=== PATIENT | female | born 1990 | race Caucasian/White ===

== ENCOUNTER 2018-05-20 11:00 | Outpatient (RCR) | payer OTHER, SELFPAY | END 2018-05-20 11:01 | disposition home or self-care (01) | LOC: PT 11:00 | PROVIDERS: Visit Provider Emergency Medicine | DX: M54.2 Cervicalgia (principal); M54.5 Low back pain | CPT/HCPCS: 97010; 97014; 97033; 97035; 97110; 97140; 97163; 97164; G0283 ==

== ENCOUNTER 2023-10-29 14:23 | Emergency (ER) | payer SELFPAY ==
[2023-10-29 14:34] VITALS: BP 134/82; PULSE 75; RESP 16; TEMP 36.8; O2SAT 97; BMI 25.8
--- NOTE | 2023-10-29 14:40 | ECG_ITS ---
APPROVED REPORT Exam: Resting ECG HR:75 bpm ECG Measurements Heart Rate 75 AXES MT 142 P 47 QRSd 98 QRS 62 QT 375 T -14 QTc 403 Conclusion SINUS RHYTHM NONSPECIFIC T-WAVE ABNORMALITY ABNORMAL ECG UNCONFIRMED REPORT Electronically signed by : Bolivar Mullins MD 10/30/2023 08:13:40
[2023-10-29] MEDS: LACTATED RINGERS 1000ML 1,000 ML 999 ML IV (14:56)
[2023-10-29 14:58] LABS: Basophils % 0.5 % (0.1-2.0); Eosinophils % 0.6 % (0.1-12.0); Hematocrit 44.8 % (37.0-47.0); Hemoglobin 15.4 g/dL (12.2-16.2); Mean Corpuscular HGB Conc 34.3 g/dL (31.8-35.4); Mean Corpuscular Hemoglobin 30.8 pg (27.0-31.2); Mean Corpuscular Volume 89.8 fl (81-99); Mean Platelet Volume 7.7 fl (7.4-10.4); Monocytes # 0.3 K/mm3 (0.1-1.0); Monocytes % 9.4 % (1.7-9.3); Neutrophils # 1.6 K/mm3 (1.8-7.8); Neutrophils % 55.4 % (37.0-80.0); Platelet Count 328 K/mm3 (142-424); Red Blood Count 4.98 M/mm3 (4.20-5.40); Red Cell Distribution Width 13.1 % (11.5-17.5); White Blood Count 2.9 K/mm3 (4.8-10.8)
[2023-10-29 15:00] VITALS: BP 134/94; PULSE 71; O2SAT 95
--- NOTE | 2023-10-29 15:06 | ED_ITS ---
Discharge Plan Disposition Patient Disposition: Home, Self-Care Prescriptions Prescriptions: New oseltamivir [Tamiflu] 75 mg capsule 75 mg PO BID 5 Days Qty: 10 0RF meclizine 25 mg tablet 25 mg PO TID PRN (Reason: dizziness) Qty: 14 0RF No Action etodolac 200 MG capsule 200 mg PO BID PRN (Reason: Moderate Pain) Qty: 30 0RF Rx Instructions: cyclobenzaprine 10 MG tablet 10 mg PO Q8HP PRN (Reason: Muscle Spasm) Qty: 30 0RF Referrals Follow up/Referrals: Alcon Moulton MD [Primary Care Provider] - See instructions Activity Restrictions/Add. Instructions Additional Instructions/Restrictions: Call your family doctor to establish care for this visit to the emergency department and schedule follow-up within 48 hours to ensure improvement. If you have any worsening of your condition or any other concerning signs or symptoms, return to the emergency department or your primary care doctor for further evaluation. Tamiflu and meclizine as prescribed Clinical Impressions Clinical Impression: Influenza A Discharge ED Provider: Una Wright Adult HPI General Chief complaint: Dizziness Stated complaint: dizzy, chills, syncope 10/28 Time Seen by Provider: 10/29/23 14:50 Mode of Arrival: Ambulatory Source of Information: Patient Limitations: No Limitations Description of Symptoms (Recalled from ER Triage Doc. by RN): pt states she left work yesterday because she felt like she was going to pass out. Pt states after she got home upon getting out of bed she felt like she was going to pass out and then woke up under her table. the syncopal episode was unwittnessed. pt states she is having L sided posterior SAHU after the fall. pt also c/o chills, sweating, N/V/D x1wk. pt states she is consistently getting more and more dizzy. History of Present Illness HPI narrative: 33-year-old presenting with dizziness and syncopal episode. Patient states that she recently at home and was with family who was sick with some kind of viral illness. Unsure what they had. 2 days prior to this visit, patient states that she started feeling lightheaded when standing up from sitting position or standing up from lying down. She has had 2 syncopal episodes in the past 2 days related to position changes. She also states that in the past couple of days she has had fevers, chills, nausea, vomiting, diarrhea. She has not seen a physician for any of the symptoms as she states she does not have insurance and is working on that. Last syncopal episode was earlier this morning on 10/29 when she stood up in her kitchen to get a bottle of water, and then woke up on the floor covered in water. Denies any prodrome or aura. Related Data Previous Rx's Medication Instructions Recorded cyclobenzaprine 10 mg tablet 10 mg PO Q8HP PRN Muscle Spasm #30 03/17/18 tabs etodolac 200 mg capsule 200 mg PO BID PRN Moderate Pain 03/17/18 #30 caps meclizine 25 mg tablet 25 mg PO TID PRN dizziness #14 tabs 10/29/23 oseltamivir 75 mg capsule (Tamiflu) 75 mg PO BID 5 days #10 caps 10/29/23 Allergies Allergy/AdvReac Type Severity Reaction Status Date / Time No Known Allergies Allergy Verified 10/29/23 15:14 [facility] Disclaimer: The information contained in this section may have been updated after the patient was seen, as this information can be updated by other users. Social History Smoking Status: Current every day smoker tobacco type: cigarettes alcohol intake: never current occupational status: employed Travel in the last 8 weeks: None ROS Obtained: Yes All systems reviewed & no additional complaints except as documented Physical Exam General General appearance: alert and in no apparent distress Head Head exam: atraumatic and normocephalic Eye Eye exam: Present normal appearance, PERRL and EOMI ENT ENT exam: Present mucous membranes moist Neck Neck exam: Present normal inspection, full ROM and trachea midline Respiratory Respiratory exam: Present normal lung sounds bilaterally; Absent respiratory distress, wheezes, stridor, accessory muscle use or prolonged expiratory phase Cardiovascular Cardiovascular exam: Present regular rate, normal rhythm and normal heart sounds; Absent systolic murmur Abdominal Exam Abdominal exam: Present soft; Absent distention, tenderness, guarding, rebound or rigidity Extremities Exam Extremities exam: Absent edema Neurological Exam Neurological exam: Present alert, oriented X3, CN II-XII intact and normal gait; Absent motor sensory deficit Skin Skin exam: Present warm and dry; Absent diaphoresis or erythema Medical Decision Making Medical Records Medical records reviewed: Yes I reviewed the patient's medical records. Roberto Inquiry Pt receiving controlled substance: No Roberto was queried for this patient: No Vital Signs: 10/29/23 14:34 10/29/23 15:00 10/29/23 16:00 Temperature 98.2 F Temperature Source Oral Pulse Rate 71 73 Pulse Rate [Left] 75 Respiratory Rate 16 Blood Pressure 134/94 H 137/96 H Blood Pressure [Right Arm] 134/82 Blood Pressure Mean 109 Blood Pressure Mean [Right Arm] 99 Blood Pressure Source Blood Pressure Source [Right Arm] Automatic Cuff Blood Pressure Position Blood Pressure Position [Right Arm] Sitting 02 Sat by Pulse Oximetry 97 95 96 Oxygen Delivery Method Room Air Room Air Room Air 10/29/23 16:30 10/29/23 17:33 Temperature 98.2 F Temperature Source Oral Pulse Rate 74 74 Pulse Rate [Left] Respiratory Rate 16 Blood Pressure 119/93 H 119/93 H Blood Pressure [Right Arm] Blood Pressure Mean 100 Blood Pressure Mean [Right Arm] Blood Pressure Source Automatic Cuff Blood Pressure Source [Right Arm] Blood Pressure Position Sitting Blood Pressure Position [Right Arm] 02 Sat by Pulse Oximetry 98 Oxygen Delivery Method Room Air Room Air Lab Data Lab Results 10/29/23 14:45: WBC 2.9 L, RBC 4.98, Hgb 15.4, Hct 44.8, MCV 89.8, MCH 30.8, MCHC 34.3, RDW 13.1, Plt Count 328, MPV 7.7, Neut % (Auto) 55.4, Lymph % (Auto) 34.0, Coles % (Auto) 9.4 H, Eos % (Auto) 0.6, Baso % (Auto) 0.5, Neut # (Auto) 1.6 L, Lymph # (Auto) 1.0, Coles # (Auto) 0.3, Eos # (Auto) 0.0, Baso # (Auto) 0.0, Sodium 141, Potassium 3.3 L, Chloride 101, Carbon Dioxide 40 H, Anion Gap 3.3 L, BUN 12, Creatinine 0.60, Estimated Creat Clear 159, Estimated GFR 114, Est GFR ( Amer) 138, Glucose 93, Calcium 8.7, Phosphorus 3.4, Magnesium 2 .3, Total Bilirubin 0.2, AST 41 H, ALT 32, Alkaline Phosphatase 56, Troponin I < 0.01, NT-Pro-B Natriuret Pep < 20.0, Total Protein 7.2, Albumin 4.3, Globulin 2.9, Albumin/Globulin Ratio 1.5, TSH 0.73, Thyroxine (T4) 7.4, HCG, Quant < 2 10/29/23 15:07: SARS-CoV-2 (PCR) Not detected, Influenza A Untype (PCR) Detected A, Influenza Type B (PCR) Not detected 10/29/23 14:45 10/29/23 14:45 Orders (Tests/Meds): ED MEDICATIONS Discontinued Medications Generic Name Dose Route Start Last Admin Trade Name Freq PRN Reason Stop Dose Admin Dexamethasone 10 mg 10/29/23 17:11 10/29/23 17:20 Dexamethasone 4mg Tablet PO 10/29/23 17:12 10 mg ONCE ONE Administration Lactated Ringer's 1,000 mls @ 999 mls/hr 10/29/23 14:50 10/29/23 14:56 Lactated Ringer's 1000 Ml Bag IV 10/29/23 15:50 999 mls/hr .Q1H1M ONE Administration Meclizine HCl 25 mg 10/29/23 17:26 10/29/23 17:31 Meclizine 25mg Tablet PO 10/29/23 17:27 25 mg ONCE ONE Administration Oseltamivir Phosphate 75 mg 10/29/23 21:00 Oseltamivir 75mg Capsule PO 11/03/23 09:01 BID MEAGHAN Oseltamivir Phosphate 75 mg 10/29/23 17:25 10/29/23 17:25 Oseltamivir 75mg Capsule PO 10/29/23 17:26 75 mg ONCE ONE Administration ORDERS Category Date Time Status CXR --portable [XR chest portable] Stat Exams 10/29/23 15:11 Completed Brain Natriuretic Peptide Stat Lab 10/29/23 14:45 Completed CBC w/Auto Diff [Complete Blood Count Auto Diff] Stat Lab 10/29/23 14:45 Completed CMP [Comprehensive Metabolic Panel] Stat Lab 10/29/23 14:45 Completed HCG,Quantitative Stat Lab 10/29/23 14:45 Completed Magnesium Stat Lab 10/29/23 14:45 Completed Phosphorous Stat Lab 10/29/23 14:45 Completed Rapid PCR Covid and Flu A/B Stat Lab 10/29/23 15:07 Completed T4 (Thyroxine) Stat Lab 10/29/23 14:45 Completed TSH [Thyroid Stimulating Hormone] Stat Lab 10/29/23 14:45 Completed Trop I [Troponin I] Stat Lab 10/29/23 14:45 Completed ECG initial Besson Routine Y 10/29/23 14:40 Completed HEART Score History (anamnesis): Slightly suspicious ECG: Normal Age: <45 years Risk factors: No known risk factors Troponin: </= normal limit HEART Score: 0 Medical Decision Narrative: 33-year-old presenting with dizziness and syncopal episode. Patient states that she recently at home and was with family who was sick with some kind of viral illness. Unsure what they had. 2 days prior to this visit, patient states that she started feeling lightheaded when standing up from sitting position or standing up from lying down. She has had 2 syncopal episodes in the past 2 days related to position changes. She also states that in the past couple of days she has had fevers, chills, nausea, vomiting, diarrhea. She has not seen a physician for any of the symptoms as she states she does not have insurance and is working on that. Last syncopal episode was earlier this morning on 10/29 when she stood up in her kitchen to get a bottle of water, and then woke up on the floor covered in water. Denies any prodrome or aura. History was obtained via conversation with patient and family. On arrival, patient hemodynamically stable, alert, oriented x4, appropriate, GCS 15, moving all extremities spontaneously, pupils equal and reactive to light. Full physical exam performed and significant for NIHSS 0. Cardiac exam within normal limits, neurologically intact including cranial nerve, cerebellar, motor, sensory exams. Nontachycardic, normotensive. Afebrile and saturating appropriately. Differential includes acute viral illness, orthostatic, vasovagal, cardiac etiology, dysrhythmia, electrolyte abnormality, other metabolic abnormality, endocrinologic, among others. Patient was given 1 L fluid bolus, meclizine for symptomatic management and correction of underlying abnormalities. Workup independently interpreted and significant for flu positive swab. Patient mildly leukopenic, this was relayed. Hypokalemic, this was repleted. No anion gap. Troponin negative, BNP negative, thyroid studies negative, negative, urinalysis without concern for UTI. No acute cardiopulmonary airspace disease. See radiology read for full review of final results. Independent interpretation of EKG shows sinus rhythm 75 beats a minute with poor R wave progression in precordial leads. T wave inversions in inferior leads without reciprocal change. NH, QRS, QT intervals within normal limits, axis normal. Crescent syncope positive for abnormal EKG. Heart score 0. On reevaluation, patient resting comfortably in bed. Given patient presentation, workup, history, this most likely represents flu positive syndrome. Because patient at baseline without signs or symptoms of clinical decompensation, deemed appropriate for discharge. Results were relayed to patient who voiced under standing and were agreeable to outpatient management and follow up. At the time of discharge the patient was hemodynamically stable, tolerating PO, and mobilizing appropriately. Critical Care Critical Care Time Critical Care Time: No
--- NOTE | 2023-10-29 15:11 | XR_ITS ---
FINAL REPORT CLINICAL HISTORY: syncope s.o.a. FINDINGS: SINGLE VIEW CHEST The heart is normal in size. The mediastinum is unremarkable. The lungs are clear. There is no pneumothorax. IMPRESSION: No acute process. Reviewed, Interpreted and Dictated by Adelso Badillo III, MD Transcribed by Therese Kessler Authenticated and . [facility]
[2023-10-29 15:15] LABS: Chloride 101 mmol/L (98-107); Potassium 3.3 mmoL/L (3.5-5.1); Sodium 141 mmol/L (136-145)
[2023-10-29 15:18] LABS: Alanine Aminotransferase 32 U/L (12-78); Albumin Level 4.3 g/dl (3.5-5.0); Albumin/Globulin Ratio 1.5 (1.1-1.8); Alkaline Phosphatase 56 U/L (38-126); Anion Gap 3.3 mEq/L (5-15); Aspartate Amino Transferase 41 U/L (14-36); Bilirubin,Total 0.2 mg/dl (0.2-1.3); Blood Urea Nitrogen 12 mg/dl (7-17); Carbon Dioxide 40 mmol/L (22.0-30.0); Creatinine Clearance Estimated 159 mL/min (50-200); Estimated Glomerular Filt Rate 114 ml/min (>60); GFR (African American) 138 ML/MIN (>60); Globulin 2.9 g/dL (1.3-3.2); Phosphorous 3.4 mg/dl (2.5-4.5); Total Protein,Serum 7.2 g/dl (6.3-8.2)
[2023-10-29 15:19] LABS: Coronavirus 19, PCR Not Detected (NotDetected); Influenza B, PCR Not Detected (NotDetected)
[2023-10-29 15:19] LABS: Calcium 8.7 mg/dl (8.4-10.2); Glucose 93 mg/dl (74-100); Magnesium 2.3 mg/dl (1.6-2.3)
[2023-10-29 15:32] LABS: Troponin I < 0.01 ng/ml (0.00-0.034)
[2023-10-29 15:36] LABS: T4 (Thyroxine) 7.4 ug/dl (5.53-11.0)
[2023-10-29 15:47] LABS: HCG,Quantitative < 2 mIU/ml (0-5.42)
[2023-10-29 15:49] LABS: NT Pro Brain Natriuretic Pep. < 20.0 pg/mL (0-125); Thyroid Stimulating Hormone 0.73 uIU/mL (0.465-4.68)
[2023-10-29 16:00] VITALS: BP 137/96; PULSE 73; O2SAT 96
[2023-10-29 16:05] LABS: Influenza A, PCR Detected (NotDetected)
[2023-10-29 16:30] VITALS: BP 119/93; PULSE 74; O2SAT 98
[2023-10-29] MEDS: DEXAMETHASONE 4MG TABLET 10 MG PO (17:20)
[2023-10-29] MEDS: OSELTAMIVIR 75MG CAPSULE 75 MG PO (17:25)
[2023-10-29] MEDS: MECLIZINE 25MG TABLET 25 MG PO (17:31)
[2023-10-29 17:33] VITALS: BP 119/93; PULSE 74; RESP 16; TEMP 36.8; O2SAT 98
== END 2023-10-29 17:34 | disposition home or self-care (01) ==
PROVIDERS: Emergency Medicine; Emergency Provider Emergency Medicine; PCP Family Medicine
DX: J10.2 Influenza due to other identified influenza virus with gastrointestinal manifestations (principal); E87.6 Hypokalemia; R55 Syncope and collapse; R42 Dizziness and giddiness; R50.9 Fever, unspecified; R11.2 Nausea with vomiting, unspecified; F17.210 Nicotine dependence, cigarettes, uncomplicated; R94.31 Abnormal electrocardiogram [ECG] [EKG]
CPT/HCPCS: 71045; 80053; 83735; 83880; 84100; 84436; 84443; 84484; 84702; 85025; 87636; 93005; 96360; 99284